=== PATIENT | female | born 1980 | race African-American/Black ===

== ENCOUNTER 2021-09-11 11:02 | Emergency (ER) | payer BC ==
[~2021-09-11] VITALS: Ht 160 cm; Wt 76.0 kg
[2021-09-11] MEDS ORDERED: FAMOTIDINE 20MG/2ML VIAL IV STA (11:17)
[2021-09-11] MEDS ORDERED: MAGNESIUM/ALUMINUM HYDROXIDE/SIMETHICONE 30ML UDC PO STA (11:17)
[2021-09-11] MEDS ORDERED: ONDANSETRON HCL 4MG/2ML INJ IV STA (11:17)
[2021-09-11] MEDS ORDERED: SODIUM CHLORIDE 0.9% 1,000 ML IV ONE (11:30)
[2021-09-11 11:54] LABS: BASOPHILS % 0.4 % (0.0-2.0); EOSINOPHILS % 0.8 % (0.0-5.0); HEMATOCRIT. 35.5 % (36.0-48.0); HEMOGLOBIN. 11.9 g/dL (12.0-16.0); LYMPHOCYTES % 13.7 % (20.0-50.0); MEAN CORPUSCULAR HEMOGLOBIN 29.8 pg (28.0-32.0); MEAN CORPUSCULAR VOLUME 89.1 fL (81.0-99.0); MEAN PLATELET VOLUME 8.6 fl (7.4-10.4); NEUTROPHILS % 77.1 % (40.0-76.0); PLATELET 185 x1000/uL (130-400); RED BLOOD CELL COUNT 3.99 mill/uL (4.2-5.4); RED CELL DISTRIBUTION WIDTH 14.3 % (11.6-14.6)
[2021-09-11 11:59] LABS: CHLORIDE 105 mEq/L (98-107)
[2021-09-11] MEDS ORDERED: ONDANSETRON HCL 4MG/2ML INJ IV NR (15:15)
[2021-09-11] MEDS ORDERED: FAMOTIDINE 20MG/2ML VIAL IV NR (15:15)
[2021-09-11] MEDS ORDERED: MAGNESIUM/ALUMINUM HYDROXIDE/SIMETHICONE 30ML UDC PO NR (15:15)
[2021-09-11 15:29] LABS: CLARITY URINE CLOUDY (CLEAR); COLOR URINE YELLOW (YELLOW); KETONES URINE TRACE (NEGATIVE); LEUKOCYTE ESTERASE URINE 1+ (NEGATIVE); NITRITE URINE NEGATIVE (NEGATIVE); OCCULT BLOOD URINE 3+ (NEGATIVE); PROTEIN URINE 1+ (NEGATIVE); SPECIFIC GRAVITY URINE 1.023 (1.005-1.030)
[2021-09-11] MEDS ORDERED: CEFTRIAXONE 1 G PREMIX 50 ML IV NR (15:45)
[2021-09-11] MEDS ORDERED: PROT20 MT (15:51)
[2021-09-11] MEDS ORDERED: NITR-87 MT (15:54)
[2021-09-11 17:45] VITALS: BP 136/84
== END 2021-09-11 18:00 | disposition home or self-care (01) ==
LOC: ER 11:02
DX: R10.13 Epigastric pain (principal); J45.909 Unspecified asthma, uncomplicated; Z98.890 Other specified postprocedural states
CPT/HCPCS: 36415; 80053; 81003; 81025; 83690; 85025; 96365; 96375; 99284; J0696; J2405; J3490; J7030

== ENCOUNTER 2022-03-13 06:39 | Emergency (ER) | payer BC, MEDICAID, OTHER ==
[~2022-03-13] VITALS: Ht 160 cm; Wt 67.8 kg
[~2022-03-13 06:39] MED LIST: NITR-87 MT; PROT20 MT
[2022-03-13] MEDS ORDERED: ACETAMINOPHEN 325MG TABLET PO ONE (08:00)
[2022-03-13] MEDS ORDERED: ALBUTEROL (0.083%) 2.5MG/3ML NEB HHN STA (09:59)
[2022-03-13] MEDS ORDERED: BENZONATATE 100MG CAPSULE PO ONE (10:15)
[2022-03-13] MEDS ORDERED: DEXAMETHASONE 4MG/ML 1ML VIAL IM ONE (10:15)
[2022-03-13] MEDS ORDERED: IPRATROPIUM BROMIDE (0.02%) 0.5MG/2.5ML NEB HHN STA (10:17)
[2022-03-13] MEDS: DEXAMETHASONE 10 MG/ML VIAL IM NR ×2 (10:59→11:00)
[2022-03-13] MEDS ORDERED: TUSSL PO (11:30)
[2022-03-13] MEDS ORDERED: TOPUD PO (11:30)
[2022-03-13] MEDS ORDERED: ALBU6.7H9 INH (11:30)
[2022-03-13 12:15] VITALS: BP 143/81
== END 2022-03-13 12:15 | disposition home or self-care (01) ==
LOC: ER 06:39
DX: J98.01 Acute bronchospasm (principal); Z86.16 Personal history of COVID-19
CPT/HCPCS: 71045; 93005; 94640; 96372; 99283; J1100; Z7610

== ENCOUNTER 2022-03-14 03:31 | Emergency (ER) | payer BC, OTHER ==
[~2022-03-14] VITALS: Ht 160 cm; Wt 66.0 kg
[~2022-03-14 03:31] MED LIST changes: +ALBU6.7H9 INH; +TOPUD PO; +TUSSL PO
[2022-03-14 04:32] VITALS: BP 136/92
[2022-03-14] MEDS ORDERED: ACETAMINOPHEN 325MG TABLET PO ONE (08:30)
== END 2022-03-14 08:41 | disposition home or self-care (01) ==
LOC: ER 03:31
DX: R20.0 Anesthesia of skin (principal); U07.1 COVID-19
CPT/HCPCS: 99284

== ENCOUNTER 2023-11-24 23:08 | Emergency (ER) | payer BC, MEDICAID, OTHER ==
[~2023-11-24] VITALS: Ht 160 cm; Wt 58.0 kg
[~2023-11-24 23:08] MED LIST changes: +ALBU6.7H3 INH; -ALBU6.7H9 INH
[2023-11-24 23:30] VITALS: BP 154/92; PULSE 109; RESP 15; TEMP 98.9; O2SAT 99
[2023-11-25 01:42] LABS: BASOPHILS % 0.3 % (0.0-2.0); EOSINOPHILS % 0.9 % (0.0-5.0); HEMATOCRIT. 39.9 % (36.0-48.0); HEMOGLOBIN. 13.1 g/dL (12.0-16.0); LYMPHOCYTES % 17.2 % (20.0-50.0); MEAN CORPUSCULAR HEMOGLOBIN 30.2 pg (28.0-32.0); MEAN CORPUSCULAR VOLUME 91.7 fL (81.0-99.0); MEAN PLATELET VOLUME 8.3 fl (7.4-10.4); MONOCYTES % 3.9 % (2.0-8.0); NEUTROPHILS % 77.7 % (40.0-76.0); PLATELET 153 x1000/uL (130-400); RED BLOOD CELL COUNT 4.35 mill/uL (4.2-5.4); RED CELL DISTRIBUTION WIDTH 17.1 % (11.6-14.6); WHITE BLOOD COUNT 9.7 x1000/uL (4.5-11.0)
[2023-11-25 01:47] LABS: CHLORIDE 104 mEq/L (98-107); POTASSIUM 4.1 mEq/L (3.5-5.1); SODIUM 136 mEq/L (136-145)
[2023-11-25 01:48] LABS: CALCIUM 9.1 mg/dL (8.7-10.4); CARBON DIOXIDE 23 mEq/L (21-32)
[2023-11-25 01:53] LABS: GLUCOSE 86 mg/dL (70-105); UREA NITROGEN BLOOD 24 mg/dL (9-23)
[2023-11-25 01:54] LABS: ALANINE AMINOTRANSFERASE 23 IU/L (10-49); ASPARTATE AMINOTRANSFERASE 21 IU/L (<34)
[2023-11-25 01:55] LABS: ALBUMIN 4.3 g/dL (3.2-4.8); BILIRUBIN TOTAL 0.7 mg/dL (0.1-1.0); PROTEIN TOTAL 8.9 g/dL (6.0-8.3)
[2023-11-25] MEDS ORDERED: DOXY100T2 MT (02:03)
[2023-11-25] MEDS ORDERED: AMOX1TAB16 MT (02:17)
[2023-11-25 02:53] LABS: HCG SCREEN NEGATIVE
== END 2023-11-25 02:35 | disposition home or self-care (01) ==
LOC: ER 23:08
DX: J18.9 Pneumonia, unspecified organism (principal); F41.9 Anxiety disorder, unspecified; J45.909 Unspecified asthma, uncomplicated
CPT/HCPCS: 36415; 71045; 80053; 83880; 84703; 85025; 99284